=== PATIENT | female | born 1995 | race Hispanic/Latino ===

== ENCOUNTER 2025-01-11 10:02 | Inpatient (IN) | payer MEDICAID, OTHER, SELFPAY ==
[2025-01-11 10:32] VITALS: BMI 28.7
[2025-01-11] MEDS ORDERED: Acetaminophen 500 MG TAB PO PRN (11:00)
[2025-01-11] MEDS ORDERED: Tranexamic Acid 1,000 MG/10 ML VIAL IVP PRN (11:00)
[2025-01-11] MEDS ORDERED: Ibuprofen 800 MG TAB PO PRN (11:00)
[2025-01-11] MEDS ORDERED: HYDROcodone/Acetaminophen 5/325 mg Tablet PO PRN (11:00)
[2025-01-11] MEDS ORDERED: Lidocaine 1% (PF) 30 ML VIAL SC PRN (11:00)
[2025-01-11] MEDS ORDERED: Ondansetron PF 4 MG/2 ML Vial IVP PRN ×3 (11:00→19:24)
[2025-01-11] MEDS ORDERED: Diphenoxylate HCl/Atropine Tablet PO PRN (11:00)
[2025-01-11] MEDS ORDERED: Carboprost 250 MCG/ML AMP IM PRN (11:00)
[2025-01-11] MEDS ORDERED: Methylergonovine 0.2 MG/ML VIAL IM PRN (11:00)
[2025-01-11] MEDS ORDERED: hydrALAZINE 20 MG/ML VIAL SLOW IVP PRN ×2 (11:00→19:24)
[2025-01-11] MEDS ORDERED: Oxytocin 30 units/NS 500 ML 500 ML IV SCH ×2 (11:00)
[2025-01-11 11:16] LABS: Hematocrit 31.4 % (34.9-44.5); Hemoglobin 10.1 g/dL (12.0-15.5); Mean Corpuscular Hemoglobin 27.4 pg (27.0-33.0); Mean Corpuscular Volume 85.1 fL (81.6-98.3); Platelet Count 211 10x3/uL (150-450); Red Blood Cell (RBC) Count 3.69 10x6/uL (3.90-5.03); White Blood Cell (WBC) Count 12.52 10x3/uL (3.5-10.5)
[2025-01-11 11:46] LABS: Hep B Surf Ag - L&D Non-Reactive S/CO (NonReactive)
[2025-01-11 11:48] LABS: Syphilis Antibody Index 0.09 S/CO (<1.00 Non-Reactive)
[2025-01-11] MEDS: fentaNYL/Ropivacaine Epidural 100 ML ONE (14:14)
[2025-01-11] MEDS ORDERED: diphenhydrAMINE 50 MG/ML VIAL IVP PRN (14:39)
[2025-01-11] MEDS ORDERED: Acetaminophen 325 MG TAB PO PRN (14:39)
[2025-01-11] MEDS ORDERED: fentaNYL 2 mcg/Ropivacaine 0.2% Epidural 100 ML CADD EPIDURAL SCH (14:45)
[2025-01-11] MEDS: Oxytocin 30 units/NS 500 ML 500 ML IV SCH (15:15)
[2025-01-11] MEDS ORDERED: Milk Of Magnesia 30 ML UDCUP PO PRN (19:24)
[2025-01-11] MEDS ORDERED: Bisacodyl 10 MG SUPP PR PRN (19:24)
[2025-01-11] MEDS ORDERED: Lanolin Ointment 7 GM TUBE TOP PRN (19:24)
[2025-01-11] MEDS ORDERED: diphenhydrAMINE 25 MG CAP PO PRN (19:24)
[2025-01-11] MEDS: Ibuprofen 800 MG TAB PO SCH (21:18)
[2025-01-12] MEDS: Boostrix 0.5 ML (Tdap) VIAL (>/=7 yrs of age) IM ONE (07:44)
[2025-01-12] MEDS ORDERED: Bupivacaine/Epinephrine 0.25% 30 ML VIAL ONE (08:00)
[2025-01-12] MEDS: HYDROcodone/Acetaminophen 5/325 mg Tablet PO PRN (09:07)
[2025-01-12] MEDS: Ferrous Sulfate 325 MG TAB PO SCH (09:08)
[2025-01-12 16:59] VITALS: BP 104/71; TEMP 98.1
== END 2025-01-12 18:39 | disposition home or self-care (01) | DRG 807 ==
LOC: CSHLD 10:02 → CSHPED 18:40
PROVIDERS: ADMIT Family Medicine; ATTEND Family Medicine
PROC: 10E0XZZ Delivery of Products of Conception, External Approach (ICD-10-PCS; principal; 2025-01-11)
PROC: 10907ZC Drainage of Amniotic Fluid, Therapeutic from Products of Conception, Via Natural or Artificial Opening (ICD-10-PCS; 2025-01-11)
PROC: 3E033VJ Introduction of Other Hormone into Peripheral Vein, Percutaneous Approach (ICD-10-PCS; 2025-01-11)
DX: O80 Encounter for full-term uncomplicated delivery (principal); Z37.0 Single live birth; Z3A.39 39 weeks gestation of pregnancy
CPT/HCPCS: 36415; 85027; 86780; 86850; 86900; 86901; 87340; J2590; J7120